=== PATIENT | female | born 1940 | race Caucasian/White ===

== ENCOUNTER 2018-02-25 16:10 | Outpatient (CLI) | payer MEDICARE, OTHER, SELFPAY ==
--- NOTE | 2018-02-25 16:33 | DI.RAD_ITS ---
SYMPTOM/DIAGNOSIS: LT TOE PAIN, M79.675 LEFT 5TH TOE: Three views. No acute or healing fracture or dislocation is identified.
== END 2018-02-25 16:30 ==
PROVIDERS: PCP Family Medicine; Visit Provider Family Medicine
DX: M79.675 Pain in left toe(s) (principal)
CPT/HCPCS: 73660

== ENCOUNTER 2018-04-02 08:26 | Outpatient (REF) | payer MEDICARE, OTHER, SELFPAY ==
[2018-04-02 12:40] LABS: Absolute Basophil Count 0.03 k/cumm (0.0-0.2); Absolute Eosinophil Count 0.18 k/cumm (0.0-0.7); Absolute Lymphocyte Count 1.59 k/cumm (1.2-3.4); Absolute Monocyte Count 0.53 k/cumm (0.11-0.7); Absolute Neutrophil Count 3.03 k/cumm (1.2-6.7); Basophils % 0.6; Eosinophils % 3.4; HCT 39.8 % (36.0-46.0); HGB 13.3 g/dL (12.0-15.5); Lymphocytes % 29.7; Mean Corp. HGB Concentration 33.4 g/dL (32.0-36.0); Mean Corpuscular Hemoglobin 32.8 pg (27.0-33.0); Mean Corpuscular Volume 98.3 fL (80-95); Mean Platelet Volume 10.3 fL (8.0-11.0); Monocytes % 9.9; Neutrophils % 56.4; Platelet Count 262 x1000/uL (130-400); RBC 4.05 m/cumm (4.00-5.20); RBC Distribution Width 12.4 % (11.7-14.6); White Blood Cell Count 5.36 k/cumm (4.4-10.8)
[2018-04-02 12:58] LABS: ALT 26 U/L (12-78); Anion Gap 5.7 mmol/L (3-11); BUN 21 mg/dL (7-18); CO2 31.3 mmol/L (21.0-32.0); CREATININE 0.84 mg/dL (0.55-1.02); Calcium 9.2 mg/dL (8.5-10.1); Chloride 104 mmol/L (98-107); Cholesterol 152 mg/dL (50-200); Glucose 96 mg/dL (70-100); HDL Cholesterol 71 mg/dL (40-60); LDL CHOLESTEROL 69 mg/dL (<100); Sodium 141 mmol/L (136-145); Triglyceride 79 mg/dL (30-150)
== END 2018-04-02 08:46 ==
LOC: NCHCN 08:26
PROVIDERS: PCP Family Medicine; Visit Provider Family Medicine
DX: E78.5 Hyperlipidemia, unspecified (principal); R03.0 Elevated blood-pressure reading, without diagnosis of hypertension
CPT/HCPCS: 80048; 80061; 83721; 84460; 85025

== ENCOUNTER 2019-01-30 01:03 | Outpatient (CLI) | payer MEDICARE, OTHER, SELFPAY ==
--- NOTE | 2019-01-30 11:15 | DI.MAMMO_ITS ---
EXAM: MAMMO SCREENING CLINICAL HISTORY: SCREENING Z12.31. TECHNIQUE: Mammograms were interpreted according to the usual protocol including computer analysis with CAD system, tomosynthesis and C-view imaging. COMPARISON: December 2016 FINDINGS: The breasts are of moderate density with fairly symmetrical distribution of fibroglandular tissue. No dominant mass or clumped microcalcification identified in either breast. Current examination is comp ared with previous examinations including December 2016 and there has been no gross interval change appearance comparison with previous studies. IMPRESSION: No specific evidence of malignancy at this time. Routine screening examinations are suggested at year ly intervals in this age group according to the ACS ACR guidelines, category 1, breast density catego ry B. BI-RADS Cat 1 - Negative Breast Density - Category B - Scattered areas of fibroglandular density
== END 2019-01-30 01:23 ==
PROVIDERS: PCP Family Medicine; Visit Provider Family Medicine
DX: Z12.31 Encounter for screening mammogram for malignant neoplasm of breast (principal)
CPT/HCPCS: 77063; 77067

== ENCOUNTER 2019-02-07 14:01 | Outpatient (REF) | payer MEDICARE, OTHER, SELFPAY ==
[2019-02-07 14:17] LABS: BUN 16 mg/dL (7-18); CREATININE 0.85 mg/dL (0.55-1.02); Calcium 9.1 mg/dL (8.5-10.1); Chloride 94 mmol/L (98-107); Glucose 99 mg/dL (70-100); Potassium 3.2 mmol/L (3.5-5.1); Sodium 136 mmol/L (136-145)
== END 2019-02-07 14:21 ==
LOC: NCHCN 14:01
PROVIDERS: PCP Family Medicine; Visit Provider Family Medicine
DX: R03.0 Elevated blood-pressure reading, without diagnosis of hypertension (principal)
CPT/HCPCS: 80048

== ENCOUNTER 2019-03-14 12:45 | Outpatient (REF) | payer MEDICARE, OTHER, SELFPAY ==
[2019-03-14 13:44] LABS: Anion Gap 7.3 mmol/L (3-11); BUN 12 mg/dL (7-18); CO2 30.7 mmol/L (21.0-32.0); CREATININE 0.68 mg/dL (0.55-1.02); Chloride 96 mmol/L (98-107); Glucose 84 mg/dL (74-106); Potassium 3.3 mmol/L (3.5-5.1); Sodium 134 mmol/L (136-145)
== END 2019-03-14 13:05 ==
LOC: NCHCN 12:45
PROVIDERS: PCP Family Medicine; Visit Provider Family Medicine
DX: E87.6 Hypokalemia (principal)
CPT/HCPCS: 80048

== ENCOUNTER 2019-04-25 19:58 | Outpatient (REF) | payer MEDICARE, OTHER, SELFPAY ==
[2019-04-25 19:26] LABS: Anion Gap 6.6 mmol/L (3-11); BUN 12 mg/dL (7-18); CO2 32.4 mmol/L (21.0-32.0); CREATININE 0.71 mg/dL (0.55-1.02); Calcium 9.1 mg/dL (8.5-10.1); Chloride 97 mmol/L (98-107); Glucose 102 mg/dL (74-106); Potassium 3.6 mmol/L (3.5-5.1); Sodium 136 mmol/L (136-145)
== END 2019-04-25 20:18 ==
LOC: NCHCN 19:58
PROVIDERS: PCP Family Medicine; Visit Provider Family Medicine
DX: E87.6 Hypokalemia (principal); R03.0 Elevated blood-pressure reading, without diagnosis of hypertension
CPT/HCPCS: 80048

== ENCOUNTER 2020-01-15 10:11 | Outpatient (REF) | payer MEDICARE, OTHER, SELFPAY ==
[2020-01-15 19:16] LABS: HCT 40.3 % (36.0-46.0); HGB 13.5 g/dL (11.2-15.7); MCH 32.1 pg (27.0-33.0); MCHC 33.5 % (32.0-36.0); Platelet Count 291 10^3/uL (130-400); RDW 12.4 % (11.7-14.6); WBC 5.67 10^3/uL (4.4-10.8)
[2020-01-15 19:45] LABS: Anion Gap 6.9 mmol/L (3-11); BUN 12 mg/dL (7-18); CO2 31.1 mmol/L (21.0-32.0); CREATININE 0.74 mg/dL (0.55-1.02); Calcium 8.9 mg/dL (8.5-10.1); Calculated LDL 66 mg/dL (<100); Chloride 101 mmol/L (98-107); Cholesterol 148 mg/dL (<200); Glucose 95 mg/dL (74-106); HDL Cholesterol 69 mg/dL (40-60); Potassium 3.5 mmol/L (3.5-5.1); Sodium 139 mmol/L (136-145); Triglyceride 69 mg/dL (<150)
[2020-01-15 20:04] LABS: Vitamin D 25 Total 34.7 ng/ml (30-100)
== END 2020-01-15 10:31 ==
LOC: NCHCN 10:11
PROVIDERS: PCP Family Medicine; Visit Provider Family Medicine
DX: I10 Essential (primary) hypertension (principal); E78.5 Hyperlipidemia, unspecified; E87.6 Hypokalemia; M85.80 Other specified disorders of bone density and structure, unspecified site
CPT/HCPCS: 80048; 80061; 82306; 85027

== ENCOUNTER 2020-12-06 11:15 | Outpatient (REF) | payer MEDICARE, OTHER, SELFPAY ==
[2020-12-06 15:27] LABS: Anion Gap 6.5 mmol/L (3-11); BUN 13 mg/dL (7-18); CO2 31.5 mmol/L (21.0-32.0); CREATININE 0.8 mg/dL (0.55-1.02); Calcium 9.5 mg/dL (8.5-10.1); Chloride 99 mmol/L (98-107); Glucose 94 mg/dL (74-106); Potassium 3.3 mmol/L (3.5-5.1); Sodium 137 mmol/L (136-145)
== END 2020-12-06 11:16 | disposition home or self-care (01) ==
LOC: NCHCN 11:15
PROVIDERS: PCP Family Medicine; Visit Provider Family Medicine
DX: I10 Essential (primary) hypertension (principal); E78.5 Hyperlipidemia, unspecified
CPT/HCPCS: 80048

== ENCOUNTER 2020-12-17 08:17 | Day surgery (SDC) | payer MEDICARE, OTHER, SELFPAY ==
[2020-12-17] MEDS: Tropicam./Phenyleph. (1/2.5%) 5 ML BTL OD ×3 (08:43→08:56)
[2020-12-17 08:49] VITALS: BP 157/84; PULSE 80; RESP 20; TEMP 36.5; O2SAT 93
--- NOTE | 2020-12-17 09:12 | W.ANESPRE ---
General Info Date of Service Date Performed: 12/17/20 Height: 5 ft 1.5 in Weight: 67.8 kg Body Mass Index (BMI): 27.8 Surgical Procedure: Operation Date: 12/17/20 10:40 Proposed Procedures Side Surgeon p Cataract Extraction with IOL Implant Right Lb Evans MD Meds Allergies and Home Medications Allergies Allergy/AdvReac Type Severity Reaction Status Date / Time No Known Allergies Allergy Unverified 12/17/20 08:46 Home Medication Medication Instructions Recorded atorvastatin 20 mg PO DAILY 12/16/20 betamethasone dipropionate 1 applic TOPICAL BID 12/16/20 hydrochlorothiazide 25 mg PO DAILY 12/16/20 Current Visit Medications: Current Medications Generic Name Dose Route Start Last Admin Trade Name Freq PRN Reason Stop Dose Admin Acetaminophen 1,000 mg 12/17/20 06:00 Acetaminophen 500 Mg Tab PO Q4H PRN PRN Miscellaneous Medication 0 ml 12/17/20 06:00 Prednisolone 1%, Moxifloxacin 0.5%, Nepafenac 0.1% 5ml Btl OD DIRECTED [facility] Miscellaneous Medication 0 ml 12/17/20 06:00 12/17/20 08:56 Tropicam./Phenyleph. (1/2.5%) 5 Ml Btl OD 1 drp DIRECTED ARIANA Administration Tetracaine HCl 0 ml 12/17/20 06:00 Tetracaine 0.5% 4 Ml Btl OD DIRECTED [facility] Medical History Medical History Benign essential hypertension History of tobacco use HLD (hyperlipidemia) Lichen sclerosus Osteopenia Rash Surgical History Surgical History (Updated 12/17/20 @ 08:46 by Samantha Morris) Hx of hernia repair Tobacco Smoking/Tobacco Use Status: Former Tobacco Use Alcohol Alcohol Intake: current Alcohol intake frequency: holidays/special occasions only Alcohol type: other Substance Use Substance use: Never Substance use type: does not use Vital Signs and Lab Results Vital Signs Most Recent Vital Signs in EMR: Most Recent Vital Signs Temp Pulse Resp BP Pulse Ox 36.5 C 80 20 157/84 H 93 12/17/20 08:49 12/17/20 08:49 12/17/20 08:49 12/17/20 08:49 12/17/20 08:49 Lab Results Blood Type / Crossmatch: No Data to Display Complete Blood Count: No Data to Display Complete Metabolic Panel: Sodium Level 137 mmol/L (136-145) 12/06/20 09:45 12/06/20 Potassium Level 3.3 mmol/L (3.5-5.1) L 12/06/20 09:45 12/06/20 Chloride Level 99 mmol/L (98-107) 12/06/20 09:45 12/06/20 Carbon Dioxide Level 31.5 mmol/L (21.0-32.0) 12/06/20 09:45 12/06/20 Blood Urea Nitrogen 13 mg/dL (7-18) 12/06/20 09:45 12/06/20 Creatinine 0.8 mg/dL (0.55-1.02) 12/06/20 09:45 12/06/20 Estimated GFR/1.73 m2 >= 60.00 (mL/min/1.73m2) 12/06/20 09:45 12/06/20 Calcium Level 9.5 mg/dL (8.5-10.1) 12/06/20 09:45 12/06/20 Glucose Level 94 mg/dL (74-106) 12/06/20 09:45 12/06/20 Liver Function Panel: No Data to Display Coagulation Panel: No Data to Display Cardiac Panel: No Data to Display Arterial Blood Gas: No Data to Display Venous Blood Gas: No Data to Display Pancreas Panel: No Data to Display Thyroid Panel: No Data to Display Infectious Disease: No Data to Display Blood Cultures: No Data to Display Toxicology Panel: No Data to Display Anesthesia Assessment and Plan Anesthesia History Personal History: No History of Anesthesia Complications Family History: No Family History of Anesthesia Complications Exercise Tolerance Exercise Tolerance: Metabolic Equivalents>4 Pertinent Negatives Pertinent Negatives: No Symptoms of GERD, No Major Cardiovascular Symptoms or Complaints, No Major Pulmonary Symptoms or Complaints and No History of CVA/TIA Cardiac & Pulmonary Exam Cardiac Exam: Normal S1/S2 Heart Sounds Pulmonary Exam: Clear Bilateral Breath Sounds Airway Exam Known Difficult Airway: No Mallampati Class: 2 Mouth Opening: Normal (> 3cm) Thyromental Distance: Greater than 3 cm Neck Range of Motion: Full ROM Neck Circumference: Normal Teeth Condition: Normal Dentition ASA Classification ASA Score: ASA 2 Emergency Case?: No NPO Status NPO Status: NPO Clears >2 hours, Solids >8 hours Anesthesia Plan Resuscitation Status: Full Code Anesthesia Technique: MAC Anesthesia Airway Planned: Natural Airway Monitors Used: Standard Monitors
[2020-12-17 09:14] VITALS: BMI 27.8
[2020-12-17] MEDS: Tetracaine 0.5% 4 ML BTL OD (09:57)
[2020-12-17] MEDS: Duovisc Viscoelastic System EACH 1 EACH (09:58)
[2020-12-17] MEDS: Balanced Salt Soln.-PLUS 500 ML BAG (09:58)
[2020-12-17] MEDS: Lidocaine 2% Jelly 6 ML SYR (09:59)
[2020-12-17] MEDS: Lidocaine 1% Pres-Free 5 ML VIAL (09:59)
[2020-12-17] MEDS: Povidone-Iodine Ophth 30 ML BTL (10:01)
[2020-12-17 10:15] VITALS: BP 169/79; PULSE 74; RESP 18; TEMP 36.3; O2SAT 94
--- NOTE | 2020-12-17 10:15 | ROE_ITS ---
Date of service: 12/17/20 Time of Service: 10:15 Operative Note Operative Note DATE OF PROCEDURE: 12/17/20 POST-OP DIAGNOSIS: same PROCEDURE: Cataract extraction using phacoemulsification with intraocular lens implant, right eye SURGEON: Lb Evans ANESTHESIA TYPE: Local By Surgeon and MAC Refer to Anesthesia Record ESTIMATED BLOOD LOSS: 0 PATHOLOGY: none sent COMPLICATIONS: None Patient was transported to: same day Patient's condition: stable Implants: Jimmy & Jimmy/SPENSER Tecnis [id number] Indications: Progressive visual loss due to cataract, right eye Procedure Description: CATARACT SURGERY OPERATIVE REPORT PREOPERATIVE DIAGNOSIS: 1. Nuclear/posterior subcapsular cataract, right eye POSTOPERATIVE DIAGNOSIS: Same OPERATION: 1. Cataract extraction using phacoemulsification with posterior chamber intraocular lens implant, right eye. IOL: IOL Nuclear Worker Technician/Model: Jimmy & Jimmy / SPENSER Tecnis [id number] IOL Power: + 21.0 diopters IOL Serial Number: [id number] Optic Diameter: 6.0mm Haptic/Overall Diameter: 13.0mm PHACO INFO: FlexBowman Poweron Vision System with OZil and Active Fluidics Cumulative Dispersed Energy (CDE): 11.73 seconds SURGEON: Lb Evans MD, AMANDA ANESTHESIA: Monitored Anesthesia Care (MAC), with local sub-tenon's anesthetic infiltration COMPLICATIONS: None SPECIMENS: None INDICATIONS FOR PROCEDURE: Patient is a 80-year-old lady with history of diminished visual acuity in her right eye. She is noted to have a significant nuclear/posterior subcapsular cataract. The option of cataract surgery was offered to the patient and she felt she was symptomatic enough that she wished to proceed. PROCEDURE: The correct surgical eye was identified and marked as the right eye and the pupil was dilated in the preoperative area using mydriatics and cycloplegics. The dilated pupil size was 6.5 mm. She elected to proceed without oral sedation.. The patient was brought to the operating room where cardiopulmonary monitoring was instituted and surgical time-out was performed, confirming the correct operative eye and IOL power. Topical anesthesia was administered and ophthalmic povidone-iodine 5% was instilled into the conjunctival fornices. Lidocaine gel was applied to the cornea and the kathy-ocular area was prepped with Betadine 10% solution and draped in the usual sterile fashion for intraocular surgery, including an aperture drape. A Tegaderm transparent film dressing was cut in half and used to cover the lashes and lid margins. Care was taken to sequester the lashes and lid margins under the Tegaderm dressing. A lid speculum was placed between the lids of the operative eye and the Antionette-Ramos operating microscope was maneuvered into position. Philip scissors were then used to make a conjunctival buttonhole approximately 6mm posterior to the limbus in the inferonasal quadrant. Blunt dissection was carried out to expose bare sclera, and a blunt-tipped sub-tenon?s anesthesia cannula was introduced and passed posteriorly along the globe where non- preserved plain lidocaine was injected into posterior sub-Tenon?s space. A sideport knife was used to make a paracentesis port inferotemporally. Intraocular phenylephrine/lidocaine was injected into the anterior chamber. The anterior chamber was filled with viscoelastic. A 2.4mm keratome knife was used to create a half-thickness groove at the limbus and then to construct a three- plane near-clear corneal tunnel extending 2.0mm into clear cornea superiortemporally. A flap was raised on the anterior capsule and capsulorhexis forceps were used to complete a continuous curvilinear capsulorhexis of 5.0 mm. Balanced salt solution was then used to perform cortical cleaving hydrodissection and nuclear hydrodelineation until the lens could be freely rotated within the capsular bag. The lens nucleus was then disassembled and removed within the capsular bag and iris plane using phacoemulsification. Residual cortical material was removed using the I/A handpiece. The posterior capsule was carefully polished to remove as much residual lens epithelial cells as safely possible. The capsular bag was then inflated and the anterior chamber deepened with viscoelastic. The lens implant described above was inserted into the capsular bag using the SPENSER [place] Injector. A Kuglen hook was used to dial the IOL into position. Residual viscoelastic was then removed first from posterior to the IOL, then from the anterior chamber using the I/A handpiece. The lens implant was noted to center nicely within the capsular bag. The incisions were stromally hydrated, and the anterior chamber was reformed using BSS. Then 0.5cc of moxifloxacin 1.0mg/ml were injected into the capsular bag and anterior chamber. The incisions were checked with a Weck spear and found to be secure. Several drops of ophthalmic povidone-iodine 5% were then applied to the eye followed by two drops of Imprimis combination prednisolone/moxifloxacin/nepafenac solution. The drapes were removed and a clear plastic protective eye shield was placed over th e eye. The patient was then returned to Same Day Surgery in stable condition.
--- NOTE | 2020-12-17 10:15 | W.PM.DSUDISC ---
Discharge Plan Disposition Patient Disposition: HOME Condition: Good Discharge Details Attending Provider: Lb Evans Primary Care Provider: Freda Foote Home Meds and New Rx's Prescriptions: No Action atorvastatin 20 mg Tablet 20 mg PO DAILY RF: 0 betamethasone dipropionate 0.05 % Cream 1 applic TOPICAL BID RF: 0 hydrochlorothiazide 25 mg Tablet 25 mg PO DAILY RF: 0 Discharge Instructions Stand Alone Forms: Post-op Topical Cataract, Cj Harrison (DSU) Discharge Orders Discharge Orders: Discharge Order (Routine); Ordered 12/17/20 Ordered By: Lb Evans DS: Diagnosis Discharge Diagnosis (1) Posterior subcapsular age-related cataract, right eye: Status: Resolved (2) Nuclear sclerotic cataract of right eye: Status: Resolved
--- NOTE | 2020-12-17 10:29 | W.ANESPOSTOP ---
Postoperative Evaluation Date, Time and Location Date Performed: 12/17/20 Time Performed: 10:21 Patient Location: Day Surgery Unit Vital Signs Most Recent Imported Vital Signs: Most Recent Vital Signs Temp Pulse Resp BP Pulse Ox 36.3 C L 74 18 169/79 H 94 12/17/20 10:15 12/17/20 10:15 12/17/20 10:15 12/17/20 10:15 12/17/20 10:15 Pain Score Most Recent Pain Score: Most Recent Pain Score Pain Level 1 12/17/20 10:15 Assessment Mental Status: Awake (Alert & Oriented to Patient Baseline) Airway and Respiratory Function: Patent airway with normal (patient baseline) respiratory exam Cardiovascular Function: Hemodynamically Stable Hydration Status: Adequately Hydrated Nausea & Vomiting: No Nausea or Vomiting Pain: Pt. Denies Any Pain Peripheral Nerve Block: Patient did not receive a nerve block
== END 2020-12-17 10:37 | disposition home or self-care (01) ==
PROVIDERS: PCP Family Medicine; Visit Provider Ophthalmology
PROC: (CPT 66984; principal; 2020-12-17 10:30)
DX: H25.041 Posterior subcapsular polar age-related cataract, right eye (principal); I10 Essential (primary) hypertension
CPT/HCPCS: 66984; V2632

== ENCOUNTER 2020-12-29 03:32 | Outpatient (CLI) | payer MEDICARE, OTHER, SELFPAY ==
[2020-12-29 10:14] LABS: Source Nasal/Nares
[2020-12-29 12:51] LABS: COVID-19 PCR Negative (Negative)
== END 2020-12-29 03:33 | disposition home or self-care (01) ==
LOC: LBO 03:33
PROVIDERS: PCP Family Medicine; Visit Provider Ophthalmology
DX: Z20.822 Contact with and (suspected) exposure to COVID-19 (principal); Z01.818 Encounter for other preprocedural examination
CPT/HCPCS: 87635

== ENCOUNTER 2020-12-31 08:15 | Day surgery (SDC) | payer MEDICARE, OTHER, SELFPAY ==
--- NOTE | 2020-12-31 08:39 | W.ANESPRE ---
General Info Date of Service Date Performed: 12/31/20 Height: 5 ft 1.5 in Weight: 67.8 kg Body Mass Index (BMI): 27.8 Surgical Procedure: Operation Date: 12/31/20 10:40 Proposed Procedures Side Surgeon p Cataract Extraction with IOL Implant Left Lb Evans MD Meds Allergies and Home Medications Allergies Allergy/AdvReac Type Severity Reaction Status Date / Time No Known Allergies Allergy Unverified 12/28/20 13:57 Home Medication Medication Instructions Recorded atorvastatin 20 mg PO DAILY 12/16/20 betamethasone dipropionate 1 applic TOPICAL BID 12/16/20 hydrochlorothiazide 25 mg PO DAILY 12/16/20 Current Visit Medications: Current Medications Generic Name Dose Route Start Last Admin Trade Name Freq PRN Reason Stop Dose Admin Acetaminophen 1,000 mg 12/31/20 06:00 Acetaminophen 500 Mg Tab PO Q4H PRN PRN Miscellaneous Medication 0 ml 12/31/20 06:00 Prednisolone 1%, Moxifloxacin 0.5%, Nepafenac 0.1% 5ml Btl OS DIRECTED [facility] Miscellaneous Medication 0 ml 12/31/20 06:00 Tropicam./Phenyleph. (1/2.5%) 5 Ml Btl OS DIRECTED [facility] Tetracaine HCl 0 ml 12/31/20 06:00 Tetracaine 0.5% 4 Ml Btl OS DIRECTED [facility] PFSH Active Problems Active Problems: Problem Status Onset Code Posterior subcapsular age-related cataract of left eye H25.042 Nuclear sclerotic cataract of left eye H25.12 Posterior subcapsular age-related cataract, right eye H25.041 Nuclear sclerotic cataract of right eye H25.11 Medical History Medical History (Updated 12/30/20 @ 20:34 by Lb Evans MD) Benign essential hypertension History of tobacco use HLD (hyperlipidemia) Lichen sclerosus Osteopenia Rash Surgical History Surgical History Hx of hernia repair Tobacco Smoking/Tobacco Use Status: Former Tobacco Use Alcohol Alcohol Intake: current Alcohol intake frequency: holidays/special occasions only Alcohol type: other Substance Use Substance use: Never Substance use type: does not use Vital Signs and Lab Results Lab Results Blood Type / Crossmatch: No Data to Display Complete Blood Count: No Data to Display Complete Metabolic Panel: Sodium Level 137 mmol/L (136-145) 12/06/20 09:45 12/06/20 Potassium Level 3.3 mmol/L (3.5-5.1) L 12/06/20 09:45 12/06/20 Chloride Level 99 mmol/L (98-107) 12/06/20 09:45 12/06/20 Carbon Dioxide Level 31.5 mmol/L (21.0-32.0) 12/06/20 09:45 12/06/20 Blood Urea Nitrogen 13 mg/dL (7-18) 12/06/20 09:45 12/06/20 Creatinine 0.8 mg/dL (0.55-1.02) 12/06/20 09:45 12/06/20 Estimated GFR/1.73 m2 >= 60.00 (mL/min/1.73m2) 12/06/20 09:45 12/06/20 Calcium Level 9.5 mg/dL (8.5-10.1) 12/06/20 09:45 12/06/20 Glucose Level 94 mg/dL (74-106) 12/06/20 09:45 12/06/20 Liver Function Panel: No Data to Display Coagulation Panel: No Data to Display Cardiac Panel: No Data to Display Arterial Blood Gas: No Data to Display Venous Blood Gas: No Data to Display Pancreas Panel: No Data to Display Thyroid Panel: No Data to Display Infectious Disease: Coronavirus (COVID-19)(PCR) Negative (Negative) 12/29/20 09:26 12/29/20 Coronavirus 2019 Source Nasal/Nares 12/29/20 09:26 12/29/20 Blood Cultures: No Data to Display Toxicology Panel: No Data to Display Anesthesia Assessment and Plan Anesthesia History Personal History: No History of Anesthesia Complications Family History: No Family History of Anesthesia Complications Exercise Tolerance Exercise Tolerance: Metabolic Equivalents<4 Pertinent Negatives Pertinent Negatives: No Symptoms of GERD, No Major Cardiovascular Symptoms or Complaints, No Major Pulmonary Symptoms or Complaints and No History of CVA/TIA Cardiac & Pulmonary Exam Cardiac Exam: Normal S1/S2 Heart Sounds Pulmonary Exam: Clear Bilateral Breath Sounds Airway Exam Known Difficult Airway: No Mallampati Class: 2 Mouth Opening: Normal (> 3cm) Thyromental Distance: Greater than 3 cm Neck Range of Motion: Full ROM Neck Circumference: Normal Teeth Condition: Normal Dentition ASA Classification ASA Score: ASA 2 Emergency Case?: No NPO Status NPO Status: NPO Clears >2 hours, Solids >8 hours Anesthesia Plan Resuscitation Status: Full Code Anesthesia Technique: MAC Anesthesia Airway Planned: Natural Airway Monitors Used: Standard Monitors
[2020-12-31 08:42] VITALS: BMI 27.8
[2020-12-31] MEDS: Tropicam./Phenyleph. (1/2.5%) 5 ML BTL OS ×3 (08:49→09:02)
[2020-12-31 08:50] VITALS: BP 146/82; PULSE 81; RESP 16; TEMP 36.6; O2SAT 95
[2020-12-31] MEDS: Tetracaine 0.5% 4 ML BTL OS (09:35)
[2020-12-31] MEDS: Duovisc Viscoelastic System EACH 1 EACH (09:39)
[2020-12-31] MEDS: Balanced Salt Soln.-PLUS 500 ML BAG (09:39)
[2020-12-31] MEDS: Lidocaine 1% Pres-Free 5 ML VIAL (09:40)
[2020-12-31] MEDS: Lidocaine 2% Jelly 6 ML SYR (09:40)
[2020-12-31] MEDS: Povidone-Iodine Ophth 30 ML BTL (09:41)
[2020-12-31 10:00] VITALS: BP 166/72; PULSE 74; RESP 18; TEMP 36.1; O2SAT 94
--- NOTE | 2020-12-31 10:00 | W.PM.DSUDISC ---
Discharge Plan Disposition Patient Disposition: HOME Condition: Good Discharge Details Attending Provider: Lb Evans Primary Care Provider: Freda Foote Home Meds and New Rx's Prescriptions: No Action atorvastatin 20 mg Tablet 20 mg PO DAILY RF: 0 betamethasone dipropionate 0.05 % Cream 1 applic TOPICAL BID RF: 0 hydrochlorothiazide 25 mg Tablet 25 mg PO DAILY RF: 0 Discharge Instructions Stand Alone Forms: Post-op Topical Cataract, Cj Harrison (DSU) Discharge Orders Discharge Orders: Discharge Order (Routine); Ordered 12/31/20 Ordered By: Lb Evans DS: Diagnosis Discharge Diagnosis (1) Nuclear sclerotic cataract of left eye: Status: Resolved (2) Posterior subcapsular age-related cataract of left eye: Status: Resolved
--- NOTE | 2020-12-31 10:01 | W.PM.OP ---
Date of service: 12/31/20 Time of Service: 10:01 Operative Note Operative Note DATE OF PROCEDURE: 12/31/20 PRE-OP DIAGNOSIS: Nuclear/posterior subcapsular cataract, left eye POST-OP DIAGNOSIS: same PROCEDURE: Cataract extraction using phacoemulsification with intraocular lens implant, left eye SURGEON: Lb Evans ANESTHESIA TYPE: Local By Surgeon and MAC Refer to Anesthesia Record PATHOLOGY: none sent COMPLICATIONS: None Patient was transported to: same day Patient's condition: stable Implants: Jimmy and Jimmy / [employer] Tecnis [id number] Indications: Progressive decreased vision due to cataract, left eye, with poor red reflex Procedure Description: CATARACT SURGERY OPERATIVE REPORT PREOPERATIVE DIAGNOSIS: 1. Nuclear/posterior subcapsular cataract, left eye POSTOPERATIVE DIAGNOSIS: Same OPERATION: 1. Cataract extraction using phacoemulsification with posterior chamber intraocular lens implant, left eye. IOL: IOL Demand Planning Analyst/Model: Jimmy & Jimmy / SPENSER Tecnis [id number] IOL Power: + 20.5 diopters IOL Serial Number: [id number] Optic Diameter: 6.0 mm Haptic/Overall Diameter: 13.0 mm PHACO INFO: Flex [employer] Vision System with OZil and Active Fluidics Cumulative Dispersed Energy (CDE): 12.43 seconds SURGEON: Lb Evans MD, AMANDA ANESTHESIA: Monitored A [facility] (MAC), with local sub-tenon's anesthetic infiltration COMPLICATIONS: None SPECIMENS: None INDICATIONS FOR PROCEDURE: The patient is a 80-year-old lady with history of diminished visual acuity in both eyes secondary to the development of bilateral cataract. She has already undergone cataract surgery in the right eye and is doing well postoperatively. She now presents for cataract surgery in the left eye. PROCEDURE: The correct surgical eye was identified and marked as the left eye and the pupil was dilated in the preoperative area using mydriatics and cycloplegics. The dilated pupil size was 7.0 mm. She elected to proceed without oral sedation. The patient was brought to the operating room where cardiopulmonary monitoring was instituted and surgical time-out was performed, confirming the correct operative eye and IOL power. Topical anesthesia was administered and ophthalmic povidone-iodine 5% was instilled into the conjunctival fornices. Lidocaine gel was applied to the cornea and the kathy-ocular area was prepped with Betadine 10% solution and draped in the usual sterile fashion for intraocular surgery, including an aperture drape. A Tegaderm transparent film dressing was cut in half and used to cover the lashes and lid margins. Care was taken to sequester the lashes and lid margins under the Tegaderm dressing. A lid speculum was placed between the lids of the operative eye and the Antionette-Ramos operating microscope was maneuvered into position. Philip scissors were then used to make a conjunctival buttonhole approximately 6mm posterior to the limbus in the inferonasal quadrant. Blunt dissection was carried out to expose bare sclera, and a blunt-tipped sub-tenon?s anesthesia cannula was introduced and passed posteriorly along the globe where non-preserved plain lidocaine was injected into posterior sub-Tenon?s space. A sideport knife was used to make a paracentesis port superiorly/superiortemporally. Intraocular phenylephrine/lidocaine was injected int the anterior chamber.. The anterior chamber was filled with viscoelastic. A 2.4mm keratome knife was used to create a half-thickness groove at the limbus and then to construct a three-plane near-clear corneal tunnel extending 2.0mm into clear cornea at the 3:00 position. A flap was raised on the anterior capsule and capsulorhexis forceps were used to complete a continuous curvilinear capsulorhexis of 5.5 mm. Balanced salt solution was then used to perform cortical cleaving hydrodissection and nuclear hydrodelineation until the lens could be freely rotated within the capsular bag. The lens nucleus was then disassembled and removed within the capsular bag and iris plane using phacoemulsification. Residual cortical material was removed using the 45-degree angled silicone I/A tip with 0.3mm port. The posterior capsule was carefully polished to remove as much residual lens epithelial cells as safely possible. The capsular bag was then inflated and the anterior chamber deepened with viscoelastic. The lens implant described above was inserted into the capsular bag using the SPENSER [place] Injector. A Kuglen hook was used to dial the IOL into position. Residual viscoelastic was then removed first from posterior to the IOL, then from the anterior chamber using the I/A handpiece. The lens implant was noted to center nicely within the capsular bag. The incisions were stromally hydrated, and the anterior chamber was reformed using BSS. Then 0.5cc of moxifloxacin 1.0mg/ml were injected into the capsular bag and anterior chamber. The incisions were checked with a Weck spear and found to be secure. Several drops of ophthalmic povidone-iodine 5% were then applied to the eye followed by two drops of Imprimis combination prednisolone/moxifloxacin/nepafenac solution. The drapes were removed and a clear plastic protective eye shield was placed over the eye. The patient was then returned to Same Day Surgery in stable condition.
--- NOTE | 2020-12-31 10:18 | W.ANESPOSTOP ---
Postoperative Evaluation Date, Time and Location Date Performed: 12/31/20 Time Performed: 10:08 Patient Location: Day Surgery Unit Vital Signs Most Recent Imported Vital Signs: Most Recent Vital Signs Temp Pulse Resp BP Pulse Ox 36.1 C L 74 18 166/72 H 94 12/31/20 10:00 12/31/20 10:00 12/31/20 10:00 12/31/20 10:00 12/31/20 10:00 Pain Score Most Recent Pain Score: Most Recent Pain Score Pain Level 0 12/31/20 10:00 Assessment Mental Status: Awake (Alert & Oriented to Patient Baseline) Airway and Respiratory Function: Patent airway with normal (patient baseline) respiratory exam Cardiovascular Function: Hemodynamically Stable Hydration Status: Adequately Hydrated Nausea & Vomiting: No Nausea or Vomiting Pain: Pt. Denies Any Pain Peripheral Nerve Block: Patient did not receive a nerve block
== END 2020-12-31 10:20 | disposition home or self-care (01) ==
PROVIDERS: PCP Family Medicine; Visit Provider Ophthalmology
PROC: (CPT 66984; principal; 2020-12-31 10:30)
DX: H25.042 Posterior subcapsular polar age-related cataract, left eye (principal); I10 Essential (primary) hypertension; Z87.891 Personal history of nicotine dependence; E78.5 Hyperlipidemia, unspecified
CPT/HCPCS: 66984; V2632

== ENCOUNTER 2021-01-06 11:15 | Outpatient (REF) | payer MEDICARE, OTHER, SELFPAY ==
[2021-01-06 14:25] LABS: Anion Gap 9.1 mmol/L (3-11); BUN 11 mg/dL (7-18); CO2 29.9 mmol/L (21.0-32.0); CREATININE 0.9 mg/dL (0.55-1.02); Calcium 9.4 mg/dL (8.5-10.1); Chloride 100 mmol/L (98-107); Glucose 122 mg/dL (74-106); Potassium 3.3 mmol/L (3.5-5.1); Sodium 139 mmol/L (136-145)
== END 2021-01-06 11:16 | disposition home or self-care (01) ==
LOC: NCHCN 11:15
PROVIDERS: PCP Family Medicine; Visit Provider Family Medicine
DX: E87.6 Hypokalemia (principal)
CPT/HCPCS: 80048

== ENCOUNTER 2021-02-08 01:23 | Outpatient (CLI) | payer MEDICARE, OTHER, SELFPAY ==
--- NOTE | 2021-02-08 11:45 | DI.MAMMO_ITS ---
Exam(s) MAMMO SCREENING EXAM: MAMMO SCREENING CLINICAL HISTORY: SCREENING,Z12.31 TECHNIQUE: Bilateral full field digital CC and MLO mammographic images were obtained with 3D tomosyn thesis and utilizing computer aided detection (CAD). COMPARISON: Available for comparison. FINDINGS: Masses/Architectural Distortion: None seen. Microcalcifications: No suspicious pleomorphic-type are seen. Skin Thickening/Nipple Retraction: None. IMPRESSION: 1. No significant interval change with no specific features of malignancy noted. 2. Unless there is more urgent need, screening mammography is recommended, as per [employer] guidelines. BI-RADS Category 1 - Negative Breast Density - Category B - Scattered areas of fibroglandular density Breast density category C or D implies that the patient has dense breast tissue. Dense breast tissue is very common and is not abnormal but dense breast tissue can make it harder to find cancer on a ma mmogram. Also, dense breast tissue may increase their breast cancer risk. This information about the result of the mammogram report was provided to the patient to raise their awareness. Use this report when you speak with the patient about their risks for breast cancer, which includes their family hist ory. At that time, you may recommend for more screening tests (Ultrasound or MRI) as they might be us eful based on their risk. A negative radiographic report should not delay biopsy if a dominant or clinically suspicious mass is present. Up to ten percent of cancers are not identified on mammography. A negative report may reinforce clinical impression. Adenosis and dense breasts may obscure an underlying neoplasm. False positive reports average 6 to 10%. Patient will receive a letter notifying them of these results.
== END 2021-02-08 01:43 ==
PROVIDERS: PCP Family Medicine; Visit Provider Family Medicine
DX: Z12.31 Encounter for screening mammogram for malignant neoplasm of breast (principal)
CPT/HCPCS: 77063; 77067

== ENCOUNTER 2021-02-17 20:03 | Outpatient (REF) | payer MEDICARE, OTHER, SELFPAY ==
[2021-02-17 20:21] LABS: Anion Gap 4.1 mmol/L (3-11); BUN 14 mg/dL (7-18); CO2 31.9 mmol/L (21.0-32.0); CREATININE 0.8 mg/dL (0.55-1.02); Calcium 9.5 mg/dL (8.5-10.1); Chloride 105 mmol/L (98-107); Glucose 101 mg/dL (74-106); Potassium 3.9 mmol/L (3.5-5.1); Sodium 141 mmol/L (136-145); TSH (W/Ref FT4) 1.23 uIU/mL (0.36-3.74); Vitamin B12 962 pg/mL (193-986)
[2021-02-17 20:24] LABS: Folate > 20.0 ng/mL (8.6-20.0)
[2021-02-21 09:34] LABS: Syphilis Serology (RPR) Negative (Negative)
== END 2021-02-17 20:04 | disposition home or self-care (01) ==
LOC: NCHCN 20:03
PROVIDERS: PCP Family Medicine; Visit Provider Family Medicine
DX: R41.3 Other amnesia (principal)
CPT/HCPCS: 80048; 82607; 82746; 84443; 86592

== ENCOUNTER 2021-05-05 02:25 | Outpatient (CLI) | payer MEDICARE, OTHER, SELFPAY ==
--- NOTE | 2021-05-05 17:00 | DI.DEXA_ITS ---
Exam(s) XR DEXA BONE DENSITY W/WO SURAJ EXAM: XR DEXA BONE DENSITY W/WO SURAJ CLINICAL HISTORY: OSTEOPENIA M85.88 TECHNIQUE: HologoAct Horizon C densitometer COMPARISON: DX DEXA BONE DENSITY WITH SURAJ from 2009, 2014 and 2016 FINDINGS: Lateral view of the thoracic and lumbar spine shows no evidence of compression fractures. The aorta is calcified and appears normal in diameter. Bone mineral density measurements of the lumbar spine correspond to a total T-score of -1.2, in the osteopenic range. This is not significantly changed from previous exams. Bone mineral density measurements of the left hip correspond to a total T-score of -1.0. The femora l neck T-score is -1.5, in the osteopenic range. Mildly decreased bone density from previous exams but not statistically significant... The left forearm bone mineral density measurements correspond to a T-score of the distal 3rd of -1.3 , in the osteopenic range. 4.3 percent decrease when compared with 2016. 6.2 percent decrease in simon ne density of the forearm since 09/02. WHO FRAX fracture risk assessment of 10 year risk of major osteoporotic fracture is calculated at 13 percent. Ten year risk of hip fracture is calculated at 2.8 percent.. IMPRESSION: Osteopenia of the lumbar spine, left forearm and left hip.
== END 2021-05-05 02:45 ==
PROVIDERS: PCP Family Medicine; Visit Provider Family Medicine
DX: M85.88 Other specified disorders of bone density and structure, other site (principal)
CPT/HCPCS: 77080

== ENCOUNTER 2022-08-21 18:11 | Outpatient (REF) | payer MEDICARE, SELFPAY ==
[2022-08-21 18:53] LABS: HCT 41.5 % (36.0-46.0); HGB 13.6 g/dL (11.2-15.7); MCH 31.1 pg (27.0-33.0); MCHC 32.8 % (32.0-36.0); MCV 95 fL (80-95); Platelet Count 243 10^3/uL (130-400); RBC 4.38 10^6/uL (3.93-5.22); RDW 12.9 % (11.7-14.6); RDW-SD 45.2 fL
[2022-08-21 20:41] LABS: ALT 26 U/L (14-59); AST 21 U/L (15-37); Albumin 3.5 g/dL (3.4-5.0); Alkaline Phosphatase 192 U/L (46-116); Anion Gap 7.2 mmol/L (3-11); BUN 13 mg/dL (7-18); Bilirubin, Total 0.5 mg/dL (0.2-1.0); CO2 29.8 mmol/L (21.0-32.0); CREATININE 0.8 mg/dL (0.55-1.02); Calcium 9.1 mg/dL (8.5-10.1); Chloride 105 mmol/L (98-107); Estimated GFR 74.44 (mL/min/1.73m2); Glucose 118 mg/dL (74-106); NT-proBNP 135 pg/mL (<300); Sodium 142 mmol/L (136-145); Total Protein 6.8 g/dL (6.4-8.2)
== END 2022-08-21 18:12 | disposition home or self-care (01) ==
LOC: NCHCN 18:11
PROVIDERS: PCP Family Medicine; Visit Provider Family Medicine
DX: R06.09 Other forms of dyspnea (principal)
CPT/HCPCS: 80053; 85027; 83880

== ENCOUNTER 2022-08-30 15:05 | Outpatient (REF) | payer MEDICARE, SELFPAY ==
[2022-08-30 15:46] LABS: Alkaline Phosphatase 162 U/L (46-116); GGT 32 U/L (5-55); PHOSPHORUS 3.6 mg/dL (2.6-4.7); TSH (W/Ref FT4) 2.69 uIU/mL (0.36-3.74)
[2022-08-30 16:41] LABS: Vitamin D 25 Total 34.6 ng/mL (30-100)
[2022-08-31 19:39] LABS: Parathyroid Hormone,Intact 48 pg/mL (19-88)
== END 2022-08-30 15:06 | disposition home or self-care (01) ==
LOC: NCHCN 15:05
PROVIDERS: PCP Family Medicine; Visit Provider Family Medicine
DX: R74.8 Abnormal levels of other serum enzymes (principal); I10 Essential (primary) hypertension; E78.5 Hyperlipidemia, unspecified; M85.88 Other specified disorders of bone density and structure, other site; E87.6 Hypokalemia
CPT/HCPCS: 82306; 82977; 83970; 84075; 84080; 84100; 84443

== ENCOUNTER 2022-09-20 02:03 | Outpatient (CLI) | payer MEDICARE, SELFPAY ==
--- NOTE | 2022-09-20 08:00 | DI.US_ITS ---
Exam(s) US ABDOMEN LIMITED EXAM: US ABDOMEN LIMITED CLINICAL HISTORY: Elevated alkaline phosphatase, R74.8 TECHNIQUE: Ultrasound abdomen performed using standard protocol. COMPARISON: No exams were available for comparison FINDINGS: LIVER: Normal size. Normalechogenicity. No focal liver lesions are seen.. GALLBLADDER: No evidence of cholelithiasis. No evidence of wall thickening. No pericholecystic fluid identified. Incidental 4 millimeter polyp. No follow-up indicated. HOPKINS'S SIGN: Negative. BILIARY SYSTEM: No intrahepatic or extrahepatic biliary ductal dilation. RIGHT KIDNEY: Normal size. No evidence of renal calculi. No evidence of hydronephrosis. No suspicious renal mass. No cyst identified. PANCREAS: Normal where visualized. ABDOMINAL AORTA AND IVC: Visualized portions normal caliber. ASCITES: None seen. IMPRESSION: Remark sonographic appearance of the right upper quadrant. DATA REPOSITORY:
== END 2022-09-20 02:23 ==
PROVIDERS: PCP Family Medicine; Visit Provider Family Medicine
DX: R74.8 Abnormal levels of other serum enzymes (principal)
CPT/HCPCS: 76705

== ENCOUNTER → 2023-03-14 02:02 | Outpatient (CLI) | payer MEDICARE, SELFPAY ==
--- NOTE | 2023-03-14 | DI.MAMMO_ITS ---
Exam(s) MAMMO SCREENING EXAM: MAMMO SCREENING CLINICAL HISTORY: SCREENING, Z12.31 TECHNIQUE: Mammograms were interpreted according to the usual protocol including computer analysis w [employer] CAD system, tomosynthesis and C-view imaging. COMPARISON: 2014 through 2020 FINDINGS: The breasts are composed of mainly fatty density , Breast Density category A. No suspicious masses or suspicious microcalcifications are seen. No skin thickening or abnormal axillary lymph nodes are seen. There has been no significant change from prior exams. IMPRESSION: BI-RADS Category 1, Negative mammogram Yearly screening mammography is recommended. Breast Density - Category A, fatty density. A negative radiographic report should not delay biopsy if a dominant or clinically suspicious mass is present. Up to ten percent of cancers are not identified on mammography. A negative report may reinforce clinical impression. Adenosis and dense breasts may obscure an underlying neoplasm. False positive reports average 6 to 10%. Patient will receive a letter notifying them of these results.
== END ==
PROVIDERS: PCP Family Medicine; Visit Provider Family Medicine
DX: Z12.31 Encounter for screening mammogram for malignant neoplasm of breast (principal)
CPT/HCPCS: 77063; 77067

== ENCOUNTER 2024-02-22 12:00 | Outpatient (REF) | payer MEDICARE, SELFPAY ==
[2024-02-22 16:22] LABS: Abs Immature Grans 0.01 10^3/uL (0.0-0.06); Absolute Basophil Count 0.05 10^3/uL (0.0-0.2); Absolute Eosinophil Count 0.25 10^3/uL (0.0-0.7); Absolute Lymphocyte Count 1.51 10^3/uL (1.2-3.4); Absolute Monocyte Count 0.51 10^3/uL (0.1-0.8); Absolute Neutrophil Count 3.11 10^3/uL (1.2-6.7); Basophils % 0.9 %; Eosinophils % 4.6 %; HCT 38.6 % (36.0-46.0); HGB 12.8 g/dL (11.2-15.7); Immature Grans % 0.2 %; Lymphocytes % 27.8 %; MCH 31.6 pg (27.0-33.0); MCHC 33.2 % (32.0-36.0); MCV 95 fL (80-95); MPV 10.1 fL (8.0-11.0); Monocytes % 9.4 %; Neutrophils % 57.1 %; Platelet Count 249 10^3/uL (130-400); RBC 4.05 10^6/uL (3.93-5.22); RDW-SD 45.8 fL; WBC 5.44 10^3/uL (4.4-10.8)
[2024-02-22 17:19] LABS: ALT 19 U/L (14-59); AST 18 U/L (15-37); Albumin 3.6 g/dL (3.4-5.0); Alkaline Phosphatase 168 U/L (46-116); Anion Gap 7.1 mmol/L (3-11); BUN 18 mg/dL (7-18); Bilirubin, Total 0.65 mg/dL (0.2-1.0); CO2 28.9 mmol/L (21.0-32.0); CREATININE 0.8 mg/dL (0.55-1.02); Calcium 9.3 mg/dL (8.5-10.1); Chloride 108 mmol/L (98-107); Estimated GFR 73.98 (mL/min/1.73m2); Glucose 92 mg/dL (74-106); Potassium 4.3 mmol/L (3.5-5.1); Sodium 144 mmol/L (136-145); Total Protein 6.7 g/dL (6.4-8.2)
== END 2024-02-22 12:01 | disposition home or self-care (01) ==
LOC: NCHCN 12:00
PROVIDERS: PCP Family Medicine; Visit Provider Family Medicine
DX: I10 Essential (primary) hypertension (principal)
CPT/HCPCS: 80053; 85025

== ENCOUNTER 2024-03-03 01:26 | Outpatient (CLI) | payer MEDICARE, SELFPAY ==
--- NOTE | 2024-03-03 10:00 | DI.US_ITS ---
Exam(s) US SOFT TISSUE HEAD OR NECK EXAM: US SOFT TISSUE HEAD OR NECK CLINICAL HISTORY: SUBMANDIBULAR LYMPHADENOPATHY, R59.0, LOCALIZED ENLARGED LYMPH NODES. TECHNIQUE: Ultrasound was performed using standard protocol. COMPARISON: No exams were available for comparison FINDINGS: Sonographic assessment utilizing grayscale and color Doppler imaging was performed and targeted to th e area of clinical concern. Largest cervical lymph node on the right measures 1.2 cm in greatest dimension. The largest surgical lymph node on the left measures 1.3 cm in largest dimension. The fatty tia are maintained. IMPRESSION: Normal appearing bilateral cervical lymph nodes. DATA REPOSITORY:
== END 2024-03-03 01:46 ==
PROVIDERS: PCP Family Medicine; Visit Provider Family Medicine
DX: R59.0 Localized enlarged lymph nodes (principal)
CPT/HCPCS: 76536

== ENCOUNTER 2024-03-31 01:36 | Outpatient (CLI) | payer MEDICARE, SELFPAY ==
--- NOTE | 2024-03-31 | DI.MAMMO_ITS ---
Exam(s) MAMMO SCREENING EXAM: MAMMO SCREENING CLINICAL HISTORY: SCREENING,Z12.31. TECHNIQUE: Bilateral full field digital CC and MLO mammographic images were obtained with 3D tomosyn thesis and utilizing computer aided detection (CAD). COMPARISON: Prior mammograms were reviewed. FINDINGS: There has been no significant change in the appearance and distribution of the fibroglandular tissue. There are no CAD designations. There are no new spiculated masses nor malignant appearing microcalcification groups. Some asymmetric tissue in the upper-outer quadrant of the left breast unchanged from prior mammograms . There is no significant architectural distortion nor skin thickening-retraction. IMPRESSION: No radiographic evidence of malignancy. BI-RADS Category 1 - Negative Breast Density - Category B - Scattered areas of fibroglandular density Breast density Category C or D implies that the patient has dense breast tissue. Dense breast tissue can make it harder to find cancer on a mammogram. Dense breast tissue is also associated with an incr eased risk of breast cancer. This information about the result of the mammogram report was provided to the patient to raise their awareness. Use this report when you speak with the patient about their risks for breast cancer, which includes their family history. At that time, you may recommend additional screening tests (Ultrasoun d or MRI) as these tests may add significant information. A negative radiographic report should not delay biopsy if a dominant or clinically suspicious mass is present. Up to ten percent of cancers are not identified on mammography. A negative report may reinforce clinical impression. Adenosis and dense breasts may obscure an underlying neoplasm. False positive reports average 6 to 10%. Patient will receive a letter notifying them of these results.
== END 2024-03-31 01:56 ==
LOC: DI 01:36
PROVIDERS: PCP Family Medicine; Visit Provider Family Medicine
DX: Z12.31 Encounter for screening mammogram for malignant neoplasm of breast (principal); R92.323 Mammographic fibroglandular density, bilateral breasts
CPT/HCPCS: 77063; 77067

== ENCOUNTER 2025-02-11 09:40 | Outpatient (REF) | payer MEDICARE, SELFPAY ==
[2025-02-11 16:01] LABS: ALT 18 U/L (14-59); AST 15 U/L (15-37); Albumin 3.8 g/dL (3.4-5.0); Alkaline Phosphatase 152 U/L (46-116); Anion Gap 9.1 mmol/L (3-11); BUN 15 mg/dL (7-18); Bilirubin, Total 0.6 mg/dL (0.2-1.0); CO2 28.9 mmol/L (21.0-32.0); Calcium 9.2 mg/dL (8.5-10.1); Chloride 104 mmol/L (98-107); Estimated GFR 73.52 (mL/min/1.73m2); Glucose 105 mg/dL (74-106); Potassium 4.0 mmol/L (3.5-5.1); Sodium 142 mmol/L (136-145); Total Protein 6.9 g/dL (6.4-8.2)
== END 2025-02-11 09:41 | disposition home or self-care (01) ==
LOC: NCHCN 09:40
PROVIDERS: PCP Family Medicine; Visit Provider Family Medicine
DX: R74.8 Abnormal levels of other serum enzymes (principal)
CPT/HCPCS: 80053

== ENCOUNTER → 2025-03-12 05:55 | Outpatient (CLI) | payer MEDICARE, SELFPAY ==
--- NOTE | 2025-03-12 | DI.DEXA_ITS ---
Exam(s) XR DEXA BONE DENSITY W/WO SURAJ EXAM: XR DEXA BONE DENSITY W/WO SURAJ CLINICAL HISTORY: SCREENING FOR OSTEOPOROSIS, Z78.0 ASYMPATIC MENOPAUSAL STATE TECHNIQUE: Hologic Horizon C densitometer analysis of left hip, lumbar spine and left forearm. Lateral survey image of the thoracic and lumbar spine. COMPARISON: CR XR DEXA BONE DENSITY W/WO SURAJ from 05/05/2021 and exams back to 2009 FINDINGS: Lateral view of the thoracic and lumbar spine shows no evidence of compression fractures. Bone mineral density measurements of the lumbar spine correspond to a total T- score of -1.5, in the osteopenic range. This represents a 3.3 percent decrease from 2021 and a 2.4 percent decrease from 2009. Bone mineral density measurements of the left hip correspond to a total T-score of -1.3. This represents a 4.2 percent decrease from 2021 and an 8.5 percent decrease from 2009. The femoral neck T-score is -1.7, in the osteopenic range.. Theleft forearm bone mineral density measurements correspond to a T-score of the distal 3rd of -1.5, in the osteopenic range. This represents a 2.6 percent decrease from 2021 and in 8.6 percent decrease from 2009. IMPRESSION: Osteopenia of the spine, hip and forearm with mild decreases compared with prior exams..
== END ==
PROVIDERS: PCP Family Medicine; Visit Provider Family Medicine
DX: Z78.0 Asymptomatic menopausal state (principal); M85.88 Other specified disorders of bone density and structure, other site
CPT/HCPCS: 77080